=== PATIENT | female | born 2000 ===

== ENCOUNTER 2022-09-02 15:18 | Emergency (ER) | payer OTHER, BC | END 2022-09-02 17:12 | disposition home or self-care (01) | LOC: MW.ED 15:18 | DX: S06.0X0A Concussion without loss of consciousness, initial encounter (principal); W22.8XXA Striking against or struck by other objects, initial encounter; Y92.511 Restaurant or cafe as the place of occurrence of the external cause; Y99.0 Civilian activity done for income or pay; Y93.G9 Activity, other involving cooking and grilling | CPT/HCPCS: 70450; 70450-26; 99283 ==

== ENCOUNTER 2023-01-07 21:50 | Emergency (ER) | payer BC ==
[2023-01-08] MEDS ORDERED: Acetaminophen 325 MG Tab PO ONE (00:58)
[2023-01-08] MEDS ORDERED: Ibuprofen 400 MG Tab PO ONE (00:58)
[2023-01-08] MEDS ORDERED: Lidocaine 4% 1 each Patch TOP SCH (01:00)
[2023-01-08 02:21] LABS: BILIRUBIN,URINE NEGATIVE (NEGATIVE); COLOR,URINE YELLOW; GLUCOSE,URINE NEGATIVE (NEGATIVE); KETONES,URINE NEGATIVE (NEGATIVE); LEUKOCYTE ESTERASE,URINE NEGATIVE (NEGATIVE); NITRITE,URINE NEGATIVE (NEGATIVE); OCCULT BLOOD,URINE LARGE (NEGATIVE); PROTEIN,URINE 30 mg/dL (NEGATIVE); UROBILINOGEN,URINE 0.2 EU/dL (<2.0)
[2023-01-08 02:51] LABS: APPEARANCE,URINE HAZY; BACTERIA,URINE RARE (NEGATIVE); CALCIUM OXALATE CRYSTALS,URINE MODERATE (NEGATIVE); EPITHELIAL CELLS,URINE RARE (NONE-FEW); WBC,URINE 0-1 (0-5/HPF)
== END 2023-01-08 03:03 | disposition home or self-care (01) ==
LOC: MW.ED 21:50
DX: M54.6 Pain in thoracic spine (principal); R10.9 Unspecified abdominal pain
CPT/HCPCS: 81001; 81025; 99284; A9270; 99283